=== PATIENT | male | born 1970 | race Hispanic/Latino ===

== ENCOUNTER 2021-02-28 10:45 | Outpatient (CLI) | payer OTHER, SELFPAY ==
[2021-02-28 11:12] LABS: Basophils Percent Auto 0.4 % (0.2-1.2); Eosinophils Absolute Auto 0.1 K/mm3 (0-0.3); Eosinophils Percent Auto 2.7 % (0-4.4); Hematocrit 41.9 % (42.0-52.0); Hemoglobin 13.8 g/dL (14.0-18.0); Immature Granulocyte Absolute 0.02 K/mm3 (0.00-0.031); Immature Granulocyte Percent A 0.4 % (0-0.5); Lymphocytes Absolute Auto 1.28 K/mm3 (0.9-3.2); Lymphocytes Percent Auto 26.6 % (18.3-44.2); Mean Corpuscular HGB Conc 32.9 g/dl (32-36); Mean Corpuscular Hemoglobin 29.6 pg (26-34); Mean Corpuscular Volume 89.7 fl (80-100); Mean Platelet Volume 9.3 fl (7.4-10.4); Monocytes Absolute Auto 0.5 K/mm3 (0.1-0.6); Monocytes Percent Auto 10.8 % (2.6-8.5); Neutrophils Absolute Auto 2.9 K/mm3 (1.3-6.7); Neutrophils Percent Auto 59.1 % (45.5-73.1); Platelet Count Result 242 k/mm3 (150-375); Red Blood Count 4.67 M/mm3 (4.6-6.20); Red Cell Distribution Width 11.6 % (11.5-14.5); White Blood Count 4.8 K/mm3 (4.5-10.0)
[2021-02-28 11:16] LABS: Add Urine Microscopic? YES; Appearance Urine Clear (Clear); Bilirubin Urine Negative (Negative); Blood Urine Negative (Negative); Color Urine Yellow (Yellow); Glucose Urine UA Negative (Negative); Ketones Urine Negative (Negative); Leukocyte Esterase Ur Negative LEU/UL (Negative); Mucus Urine Rare /lpf; Nitrate Urine Negative (Negative); Protein Urine 1+ mg/dL (Negative); RBC Urine 0-2 /hpf (0-2); Specific Grav Ur 1.019 (1.001-1.035); Urobilinogen Urine Negative mg/dL (<2.0); WBC Urine 0-3 /hpf
[2021-02-28 11:22] LABS: Alanine Aminotransferase 49 U/L (4-50); Albumin Level 4.6 g/dL (3.5-5.1); Alkaline Phosphatase 71 U/L (38-126); Anion Gap 10 mmol/L (8-16); Aspartate Amino Transferase 92 U/L (17-59); Bilirubin,Total 0.5 mg/dL (0.2-1.3); Blood Urea Nitrogen 9 mg/dL (9-20); Calcium 9.4 mg/dL (8.4-10.2); Carbon Dioxide 26 mmol/L (22-30); Chloride 104 mmol/L (98-107); Cholesterol 266 mg/dL (0-200); Estimated Glomerular Filt Rate > 60; Glucose 95 mg/dL (75-110); HDL Direct 64 mg/dL; Potassium 4.5 mmol/L (3.4-5.0); Sodium 140 mmol/L (137-145); Triglycerides 108 mg/dL (<150)
[2021-02-28 11:33] LABS: LDL Cholesterol Direct 154 mg/dL
[2021-02-28 11:54] LABS: Prostate Specific Antigen 1.5 ng/mL (< OR = 4.0); Thyroid Stimulating Hormone 0.861 uIU/mL (0.465-4.680)
[2021-02-28 11:59] LABS: Free T4 Free Thyroxine 0.93 ng/mL (0.78-2.19)
[2021-03-04 14:24] LABS: Testosterone Total 618 ng/dL (250-1100)
== END 2021-02-28 10:46 | disposition home or self-care (01) ==
PROVIDERS: PCP Nurse Practitioner Family; Visit Provider Nurse Practitioner Family
DX: F41.1 Generalized anxiety disorder (principal); F10.14 Alcohol abuse with alcohol-induced mood disorder; I10 Essential (primary) hypertension; Z12.5 Encounter for screening for malignant neoplasm of prostate
CPT/HCPCS: 36415; 80053; 80061; 81001; 84153; 84403; 84439; 84443; 85025

== ENCOUNTER 2021-02-28 14:34 | Outpatient (CLI) | payer OTHER, SELFPAY ==
--- NOTE | ~2021-02-28 | MR_ITS ---
EXAMINATION: MR brain/brain stem wo/w con DATE: 02/28/2021 15:33 INDICATION: Headache. TECHNIQUE: Magnetic resonance imaging (MRI) of the brain and brainstem was performed without and with 15 mL MultiHance intravenous contrast. Sequences included sagittal and axial T1-weighted FSE, axial diffusion-weighted FS EPI, axial T2*-weighted GRE, axial T2-weighted FLAIR Propeller, and axial T2-we ighted Propeller. Postcontrast sequences included axial and coronal T1-weighted FSE. Apparent diffusi on coefficient (ADC) maps were created. COMPARISON: None. FINDINGS: There is no intracranial hemorrhage, acute infarction, or abnormal intracranial mass lesion . The ventricles are normal in size. The paranasal sinuses are clear. The orbits are normal. The mast oid air cells are normal. IMPRESSION: 1. Normal brain. Reviewed, dictated and finalized at location A. IMPRESSION: 1. Normal brain.
[2021-02-28 15:15] LABS: Estimated Glomerular Filt Rate > 60
== END 2021-02-28 14:35 ==
PROVIDERS: PCP Nurse Practitioner Family; Visit Provider Nurse Practitioner Family
DX: R51.0 Headache with orthostatic component, not elsewhere classified (principal)
CPT/HCPCS: 70553; A9577

== ENCOUNTER 2021-10-27 07:20 | Outpatient (CLI) | payer BC, SELFPAY ==
[2021-10-27 07:57] LABS: Hematocrit 39.9 % (42.0-52.0); Hemoglobin 13.6 g/dL (14.0-18.0); Mean Corpuscular HGB Conc 34.1 g/dl (32-36); Mean Corpuscular Hemoglobin 31.2 pg (26-34); Mean Corpuscular Volume 91.5 fl (80-100); Mean Platelet Volume 8.9 fl (7.4-10.4); Platelet Count Result 272 k/mm3 (150-375); Red Blood Count 4.36 M/mm3 (4.6-6.20); Red Cell Distribution Width 12.4 % (11.5-14.5); White Blood Count 3.9 K/mm3 (4.5-10.0)
[2021-10-27 08:10] LABS: Alanine Aminotransferase 43 U/L (4-50); Albumin Level 4.7 g/dL (3.5-5.1); Alkaline Phosphatase 83 U/L (38-126); Anion Gap 11 mmol/L (8-16); Aspartate Amino Transferase 91 U/L (17-59); Bilirubin,Total 0.5 mg/dL (0.2-1.3); Blood Urea Nitrogen 6 mg/dL (9-20); Calcium 8.6 mg/dL (8.4-10.2); Carbon Dioxide 25 mmol/L (22-30); Chloride 101 mmol/L (98-107); Cholesterol 272 mg/dL (0-200); Estimated Glomerular Filt Rate > 60; Glucose 123 mg/dL (65-110); HDL Direct 81 mg/dL; Potassium 3.6 mmol/L (3.4-5.0); Sodium 137 mmol/L (137-145); Triglycerides 191 mg/dL (<150)
[2021-10-27 08:22] LABS: LDL Cholesterol Direct 146 mg/dL
== END 2021-10-27 07:21 | disposition home or self-care (01) ==
PROVIDERS: PCP Nurse Practitioner Family; Visit Provider Nurse Practitioner Family
DX: R25.0 Abnormal head movements (principal); I10 Essential (primary) hypertension; F10.10 Alcohol abuse, uncomplicated
CPT/HCPCS: 36415; 80053; 80061; 85027

== ENCOUNTER 2022-02-20 07:55 | Outpatient (CLI) | payer BC, SELFPAY ==
--- NOTE | ~2022-02-20 | MR_ITS ---
EXAMINATION: MR lumbar spine wo con DATE: 02/20/2022 08:20 INDICATION: Low back pain. Right leg pain. TECHNIQUE: Magnetic resonance imaging (MRI) of the lumbar spine was performed without intravenous con trast. Sequences included sagittal T2-weighted FSE, sagittal T2-weighted FS FSE, sagittal T1-weighted FSE, and axial T2-weighted FSE. COMPARISON: None FINDINGS: There is 4 degrees levocurvature of lumbar spine. There is 3 mm anterolisthesis of L4 on L5 . There is moderately decreased disc height at L4-L5. L5 is a transitional segment. The distal spinal cord signal intensity is normal. The conus medullaris is at T12-L1. The following disc levels are sp ecifically discussed: L1-L2: The disc does not extend beyond the endplate margin. There is mild bilateral facet joint osteo arthritis. There is no neural foraminal stenosis. There is no central canal stenosis. L2-L3: The disc does not extend beyond the endplate margin. There is no facet joint osteoarthritis. T here is no neural foraminal stenosis. There is no central canal stenosis. L3-L4: The disc does not extend beyond the endplate margin. There is mild left facet joint osteoarthr itis. There is no neural foraminal stenosis. There is no central canal stenosis. L4-L5: The disc is bulging and has an annular fissure. There is severe bilateral facet joint osteoart hritis. There is mild bilateral neural foraminal stenosis. There is mild central canal stenosis. L5-S1: The disc does not extend beyond the endplate margin. There is no facet joint hypertrophy. Ther e is no neural foraminal stenosis. There is no central canal stenosis. IMPRESSION: 1. Moderate spondylosis at L4-L5. Reviewed, dictated and finalized at location A.
== END 2022-02-20 07:56 ==
LOC: MICIMG 07:56
PROVIDERS: PCP Internal Medicine; Visit Provider Nurse Practitioner Family
DX: M47.26 Other spondylosis with radiculopathy, lumbar region (principal)
CPT/HCPCS: 72148

== ENCOUNTER 2023-10-05 21:34 | Inpatient (IN) | payer SELFPAY ==
--- NOTE | ~2023-10-05 | CT_ITS ---
CT of the Abdomen and Pelvis: Indication: Abdominal pain Technique: 2.5 mm axial scans were obtained through the abdomen and pelvis following intravenous adm inistration of 100 cc of Omnipaque 350. Dose reduction technique was used on this scan by utilizing a utomated exposure control and iterative reconstruction technique. The dose-length product (DLP) was 5 95.93 mGy-cm. Findings: Scans through the lung bases are unremarkable. There is diffuse fatty infiltration of the liver. The gallbladder is markedly distended with probable layering sludge. No gallbladder wall thickening or pericholecystic inflammatory change. The spleen, pancreas, adrenals and kidneys are within normal limits. No evidence of aortic aneurysm. No lymphad enopathy. No bowel obstruction or bowel wall thickening. There is no evidence to suggest acute appendicitis. Images through the pelvis were performed. Urinary bladder unremarkable. No pelvic mass seen. No ascit es. Impression: Diffuse fatty infiltration of liver. Markedly distended gallbladder with gallbladder sludge, but no other secondary signs for acute cholec ystitis. Reviewed, dictated and finalized at [facility]. LIANCE REPRESENTATIVE DEALER Impression: Diffuse fatty infiltration of liver. Markedly distended gallbladder with gallbladder sludge, but no other secondary signs for acute cholecystitis.
--- NOTE | ~2023-10-05 | US_ITS ---
Limited Abdominal Sonogram: Real-time sonographic imaging of the right upper quadrant was performed. Clinical History: Abnormal liver enzymes Findings: The liver appears echogenic, with no evidence of mass lesion or bile duct dilatation. Main portal vein demonstrates normal direction of flow. The gallbladder is prominently distended, and con tains gallbladder sludge. No gallbladder wall thickening. The common bile duct measures 5 mm. The vi sualized pancreas, aorta, and IVC are unremarkable. Impression: Gallbladder sludge with prominently distended gallbladder. Diffuse fatty infiltration of liver. Reviewed, dictated and finalized at location M. SPACE QUALITY ENGINEER Impression: Gallbladder sludge with prominently distended gallbladder. Diffuse fatty infiltration of liver.
--- NOTE | ~2023-10-05 | XR_ITS ---
Portable chest x-ray Comparison: 07/25/2019 Clinical History: Lethargy Findings: Lungs are clear, without focal consolidation or pleural effusion. Cardiomediastinal silho uette is stable. Bones and soft tissues are unremarkable. Impression: Clear lungs. Reviewed, dictated and finalized at location . ITURE DESIGNER Impression: Clear lungs.
--- NOTE | ~2023-10-05 | CT_ITS ---
Non-contrast Head CT History: Syncope Technique: Axial non-contrast imaging of the brain was performed. Dose reduction technique was used on this scan by utilizing automated exposure control and iterative reconstruction technique. The dose -length product (DLP) was 605.33 mGy-cm. Findings: There is no evidence of intracranial hemorrhage, mass lesion, or acute infarct. Brain par enchyma appears normal. The ventricles and subarachnoid spaces are normal in size. The calvarium ap pears normal. The visualized paranasal sinuses and mastoid air cells are clear. Impression: No significant abnormality seen. Reviewed, dictated and finalized at location . LE MANAGER Impression: No significant abnormality seen.
[2023-10-05 21:48] VITALS: BP 125/85; PULSE 105; RESP 16; TEMP 36.6; O2SAT 100
[2023-10-06] VITALS (18 sets, daily range): BP systolic 112–146; BP diastolic 86–98; PULSE 103–124; RESP 14–26; TEMP 36.6–37.2; O2SAT 96–100; BMI 23.1
--- NOTE | 2023-10-06 01:05 | ECG_ITS ---
Measurements Intervals Round O Rate: 103 P: 210 DE: 265 QRS: 49 QRSD: 80 T: 42 QT: 370 QTc: 486 Interpretive Statements SINUS TACHYCARDIA WITH FIRST DEGREE AV BLOCK NONSPECIFIC ST AND T-WAVE ABNORMALITY COMPARED TO ECG 07/26/2019 00:33:34 FIRST DEGREE AV BLOCK NOW PRESENT T-WAVE ABNORMALITY NOW PRESENT Electronically Signed On 10-06-2023 15:14:57 [address] SPECIALIST by Junior Luevano M.D.
[2023-10-06] MEDS: SODIUM CHLORIDE 0.9% IV 1,000 ML 999 ML IV CONT ×3 (01:21→03:01)
[2023-10-06] MEDS: ONDANSETRON INJ 4 MG/2 ML VIAL IV PUSH ×3 (01:22→11:42)
[2023-10-06] MEDS: THIAMINE 500 MG/NS 100 ML 500 MG/100 ML BAG 200 MG IVPB (01:35)
[2023-10-06 01:50] LABS: Prothrombin Time 13.2 Seconds (11.1-14.7)
[2023-10-06 01:51] LABS: Partial Thromboplastin Time 29.8 SECONDS (22.3-36.8)
[2023-10-06 02:01] LABS: Amphetamine Screen Urine Negative (Negative); Barbiturate Screen Urine Negative (Negative); Benzodiazepines Screen Urine Negative (Negative); Cannabinoid Screen Urine Negative (Negative); Cocaine Screen Urine Negative (Negative); Methadone Screen Urine Negative (Negative); Opiate Screen Urine Negative (Negative); Phencyclidine Screen Urine Negative (Negative)
[2023-10-06 02:02] LABS: Appearance Urine Clear (Clear); Bacteria Urine None Seen /hpf; Bilirubin Urine 2+ (Negative); Blood Urine Negative (Negative); Color Urine Dark Yellow (Yellow); Glucose Urine UA Negative (Negative); Hyaline Casts Urine Present /lpf; Ketones Urine 2+ mg/dL (Negative); Leukocyte Esterase Ur Trace LEU/UL (Negative); Need Manual Microscopic Reviewed; Nitrate Urine Negative (Negative); Protein Urine 1+ mg/dL (Negative); RBC Urine 0-2 /hpf (0-2); Specific Grav Ur 1.017 (1.001-1.035); Squamous Epithelial Cell Urine Occasional /hpf (Few); Urobilinogen Urine >=8.0 mg/dL (<2.0); WBC Urine 0-5 /hpf; pH Urine 6.5 (5.0-9.0)
[2023-10-06 02:03] LABS: Add Urine Microscopic? YES
[2023-10-06 02:07] LABS: Troponin I < 0.012 ng/mL (0.000-0.034)
[2023-10-06 02:10] LABS: Lactic Acid Reflex 4.4 mmol/L (0.7-2.0)
[2023-10-06 02:10] LABS: Alanine Aminotransferase 97 U/L (6-50); Albumin Level 4.2 g/dL (3.5-5.1); Alkaline Phosphatase 363 U/L (38-126); Anion Gap 21 mmol/L (8-16); Aspartate Amino Transferase 367 U/L (17-59); Bilirubin,Total 3.9 mg/dL (0.2-1.3); Blood Urea Nitrogen 7 mg/dL (9-20); Calcium 8.4 mg/dL (8.4-10.2); Carbon Dioxide 21 mmol/L (22-30); Chloride 87 mmol/L (98-107); Estimated CRCL calculation 109 ml/min; Estimated Glomerular Filt Rate > 60; Ethanol 305 mg/dL (<10); Glucose 122 mg/dL (65-110); Lipase 1787 U/L (23-300); Magnesium 2.1 mg/dL (1.6-2.3); Potassium 2.7 mmol/L (3.4-5.0); Sodium 129 mmol/L (137-145)
[2023-10-06 02:57] LABS: Beta-Hydroxybutyrate/Acetoacetate 2.25 mmol/L (0.02-0.27)
[2023-10-06] MEDS: KCL 20 MEQ/SW 100 ML 100 ML 50 MEQ IVPB (03:01)
[2023-10-06 03:05] LABS: Basophils Percent Auto 0.7 % (0.2-1.2); Eosinophils Absolute Auto 0.1 K/mm3 (0-0.3); Eosinophils Percent Auto 1.1 % (0-4.4); Hematocrit 28.2 % (42.0-52.0); Hemoglobin 9.5 g/dL (14.0-18.0); Immature Granulocyte Absolute 0.05 K/mm3 (0.00-0.031); Immature Granulocyte Percent A 1.1 % (0-0.5); Immature Platelet Fraction Pct 7.6 % (0.9-11.2); Lymphocytes Absolute Auto 0.43 K/mm3 (0.9-3.2); Lymphocytes Percent Auto 9.5 % (18.3-44.2); Mean Corpuscular HGB Conc 33.7 g/dl (32-36); Mean Corpuscular Hemoglobin 31.1 pg (26-34); Mean Corpuscular Volume 92.5 fl (80-100); Mean Platelet Volume 10.1 fl (7.4-10.4); Monocytes Absolute Auto 0.5 K/mm3 (0.1-0.6); Monocytes Percent Auto 11.7 % (2.6-8.5); Neutrophils Absolute Auto 3.4 K/mm3 (1.3-6.7); Neutrophils Percent Auto 75.9 % (45.5-73.1); Nucleated Red Blood Cells Perc 0.4 % (0.0-0.2); Platelet Count Result 76 k/mm3 (150-375); Red Blood Count 3.05 M/mm3 (4.6-6.20); Red Cell Distribution Width 13.2 % (11.5-14.5); White Blood Count 4.5 K/mm3 (4.5-10.0)
[2023-10-06 04:37] LABS: Reflex Lactic Acid Yes or No Add Lactic
--- NOTE | 2023-10-06 04:37 | ED.GENADULT ---
HPI - General Adult General Chief complaint: Alcohol Stated complaint: vomiting blood, headache, alcoholic? Time Seen by Provider: 10/06/23 00:53 History of Present Illness HPI narrative: patient 53-year-old gentleman who presents emergency department with chief complaint of not feeling well. The patient reports that he has history of alcohol abuse and reports that he drinks about a 5th and a few beers a day the patient states that he had an episode of passing out in the kitchen yesterday and struck his head patient also reports he has been vomiting and has had episodes with blood in his vomitus. The patient reports that he has had abdominal discomfort with this as well and has not been feeling well. Related Data Allergies Allergy/AdvReac Type Severity Reaction Status Date / Time No Known Allergies Allergy Verified 10/06/23 00:48 Review of Systems Review of Systems: A 10 system review of systems was completed on the patient and is negative except for what is stated in the HPI. Nursing and ancillary documentation was reviewed. FORMERLY [facility] Past Medical History Medical History Alcohol abuse Healthy adult male Obesity LARISSA (obstructive sleep apnea) Surgical History Surgical History No history of previous surgery Previous back surgery Family History Family History Mother Diabetes mellitus Mother Diabetes mellitus Father Hypertension Sibling Stomach cancer Social History Social History Social History: Reyna name is Maki. 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 Substance use: never Substance use type: does not use Living arrangements: with family Occupation/Education: occupation Gender identity (if verbalized by the patient): Male Spiritual care concerns: No Exam Narrative: GENERAL: He will-appearing, well-nourished, and in mild acute distress. HEAD: Normocephalic, atraumatic. EYES: PERRLA and EOMI. ENT: Nares clear, no rhinorrhea or epistaxis. Mucous membranes moist. NECK: Supple. CHEST: Clear to auscultation. No respiratory distress. HEART: Regular rate and rhythm. No murmur heard. Normal peripheral pulses. ABDOMEN: Soft, diffuse mild tenderness, nondistended, normal active bowel sounds. EXTREMITIES: Normal range of motion. No edema. SKIN: Warm, dry, no rash. NEURO: No focal deficits. Alert and oriented x3. PSYCH: Normal mood and affect. Course Vital Signs Vital signs: Vital Signs Temperature 36.6 C 10/05/23 21:48 Pulse Rate 105 H 10/05/23 21:48 Respiratory Rate 16 10/05/23 21:48 Blood Pressure 125/85 10/05/23 21:48 Pulse Oximetry 100 10/05/23 21:48 Oxygen Delivery Room Air 10/05/23 21:48 Temperature 36.6 C 10/05/23 21:48 Pulse Rate 104 H 10/06/23 01:51 Respiratory Rate 19 10/06/23 01:51 Blood Pressure 134/95 H 10/06/23 01:51 Pulse Oximetry 98 10/06/23 01:51 Oxygen Delivery Room Air 10/06/23 00:43 Medical Decision Making [facility] Narrative Medical decision making narrative: differential diagnosis includes alcohol withdrawal, alcoholic ketoacidosis, starvation ketosis, dehydration, pancreatitis, dehydration the patient was found to still be acutely intoxicated with a blood alcohol level of 305 patient's lactic acid was elevated at 4.4 electrolytes showed a sodium 129 potassium of 2.7 carbon dioxide was 21 anion gap was 21 BUN and creatinine were normal magnesium was 2.1
[2023-10-06] MEDS: LORazepam INJ (*CRX) 2 MG/ML VIAL IV PUSH ×2 (05:07→19:36)
[2023-10-06] MEDS: DEXTROSE 5%/0.9% SOD CHL 1,000 ML 150 ML IV CONT ×3 (05:15→18:49)
[2023-10-06 05:35] LABS: Lactic Acid 2.7 mmol/L (0.7-2.0)
[2023-10-06 06:27] LABS: Glucose Point of Care 118 mg/dl (65-105)
--- NOTE | 2023-10-06 06:28 | PC.NURSE ---
BG - 118mg/dL at this time. Pt wanting to order bfast. This RN told pt he would be able to order around 0730. Pt provided apple juice, lexii cracker and PB.
[2023-10-06 06:29] LABS: Hematocrit 27.8 % (42.0-52.0); Hemoglobin 9.4 g/dL (14.0-18.0)
[2023-10-06] MEDS: THIAMINE HCL 200 MG/2 ML VIAL 100 MG IV PUSH (09:03)
[2023-10-06] MEDS: PANTOPRAZOLE SODIUM IV 40 MG VIAL IV PUSH ×3 (09:04→21:58)
[2023-10-06 09:34] LABS: Glucose Point of Care 126 mg/dl (65-105)
--- NOTE | 2023-10-06 10:08 | ADMGEN ---
This patient, Angel Lopez, was admitted to Intensive Care Unit-6. Patient/family oriented to hospital policies and general routines including ID bracelet, bed and alarms, visiting hours, pain management, procedures, bathroom and other care routines, personal items, smoking policy, room service/diet, and visiting hours. Information on how to activate the Rapid Response Team has been discussed. Patient/Family are encouraged to report perceived risks to care and to ask questions if they do not understand what they are told or what they should do.
[2023-10-06 12:01] LABS: Hematocrit 25.9 % (42.0-52.0); Hemoglobin 8.7 g/dL (14.0-18.0)
[2023-10-06 16:35] LABS: Glucose Point of Care 155 mg/dl (65-105)
[2023-10-06 17:48] LABS: Hemoglobin 8.5 g/dL (14.0-18.0)
--- NOTE | 2023-10-06 19:11 | PM.IMHP ---
H&P: HPI History of Present Illness Date/Time: 10/06/23 19:11 Chief Complaint: 1. Alcohol intoxication 2. Nausea and vomiting Narrative: Angel Lopez is a 53-year-old gentleman who presents emergency department with chief complaint of not feeling well.? The patient reports that he has history of alcohol abuse and reports that he drinks about a 5th and a few beers a day the patient states that he had an episode of passing out in the kitchen yesterday and struck his head patient also reports he has been vomiting and has had episodes with blood in his vomitus.? The patient reports that he has had abdominal discomfort with this as well and has not been feeling well. He vapes nicotine, drinks beers and vodka daily, denies illicit drug use; CTAP: Diffuse fatty infiltration of liver. Markedly distended gallbladder with gallbladder sludge, but no other secondary signs for acute cholecystitis. CT head: Unremarkable CXR: Unremarkable He will be admitted, evaluated and managed for alcohol intoxication, alcohol gastritis Review of Systems Review of Systems: All systems reviewed & are unremarkable except as noted in HPI and below Constitutional: Constitutional: Reports fatigue Eyes: Eyes: Reports as per HPI ENT: Reports system reviewed and no additional complaints, except as documented Cardiovascular: Cardiovascular: Reports no additional cardiovascular complaints Respiratory: Respiratory: Reports no additional respiratory complaints Gastrointestinal: Gastrointestinal: Reports no additional gastrointestinal complaints, Reports nausea and Reports vomiting Genitourinary: Genitourinary: Reports no additional male genitourinary complaints Musculoskeletal: Musculoskeletal: Reports no additional musculoskeletal complaints Integumentary/Breasts: Skin/Breast: Reports system reviewed and no additional complaints, except as docu Neurologic: Reports system reviewed and no additional complaints, except as documented Psychiatric: Psychiatric: Reports no additional psychiatric complaints [facility] Past Medical History Medical History Alcohol abuse Healthy adult male Obesity LARISSA (obstructive sleep apnea) Surgical History Surgical History No history of previous surgery Previous back surgery Family History Family History Mother Diabetes mellitus Mother Diabetes mellitus Father Hypertension Sibling Stomach cancer Social History Social History Social History: Reyna name is Maki. 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 Substance use: never Substance use type: does not use Do You Feel Safe in your Home?: Yes Lack of Transportation: No Lack of Food: Never True Current Housing: I Have Housing Concerned About Future Housing: No Difficulty Paying Gas/Electric Bills: No Difficulty Paying for Meds: No Currently Unemployed: No Education: Don't Know Difficulty w/ Childcare or Family Care: No Living arrangements: with family Occupation/Education: occupation Gender identity (if verbalized by the patient): Male Spiritual care concerns: No Meds Home Medications and Allergies Home Medications Medication Instructions Recorded Confirmed Type amlodipine 5 mg-benazepril 10 mg 1 cap PO DAILY #90 caps 01/05/20 10/06/23 Rx capsule (Lotrel) Allergies Allergy/AdvReac Type Severity Reaction Status Date / Time No Known Allergies Allergy Verified 0
[2023-10-06 23:19] LABS: Hematocrit 24.3 % (42.0-52.0)
[2023-10-07] VITALS (11 sets, daily range): BP systolic 101–131; BP diastolic 61–97; PULSE 98–121; RESP 18–22; TEMP 36.7–37.4; O2SAT 94–100
[2023-10-07] MEDS: DEXTROSE 5%/0.9% SOD CHL 1,000 ML 150 ML IV CONT ×3 (01:43→17:23)
[2023-10-07] MEDS: LORazepam INJ (*CRX) 2 MG/ML VIAL IV PUSH ×5 (01:43→20:42)
[2023-10-07 04:41] LABS: Basophils Percent Auto 0.6 % (0.2-1.2); Eosinophils Percent Auto 0.4 % (0-4.4); Hematocrit 26.7 % (42.0-52.0); Hemoglobin 8.8 g/dL (14.0-18.0); Immature Granulocyte Absolute 0.06 K/mm3 (0.00-0.031); Immature Granulocyte Percent A 1.3 % (0-0.5); Immature Platelet Fraction Pct 10.4 % (0.9-11.2); Lymphocytes Absolute Auto 0.69 K/mm3 (0.9-3.2); Lymphocytes Percent Auto 14.8 % (18.3-44.2); Mean Corpuscular Hemoglobin 31.8 pg (26-34); Mean Corpuscular Volume 96.4 fl (80-100); Mean Platelet Volume 10.5 fl (7.4-10.4); Monocytes Absolute Auto 0.4 K/mm3 (0.1-0.6); Monocytes Percent Auto 8.4 % (2.6-8.5); Neutrophils Absolute Auto 3.5 K/mm3 (1.3-6.7); Neutrophils Percent Auto 74.5 % (45.5-73.1); Nucleated Red Blood Cells Absolute Auto 0.1 K/mm3 (0.0-0.012); Nucleated Red Blood Cells Perc 1.3 % (0.0-0.2); Platelet Count Result 77 k/mm3 (150-375); Red Blood Count 2.77 M/mm3 (4.6-6.20); Red Cell Distribution Width 13.4 % (11.5-14.5); White Blood Count 4.7 K/mm3 (4.5-10.0)
[2023-10-07 04:55] LABS: Alanine Aminotransferase 89 U/L (6-50); Albumin Level 3.2 g/dL (3.5-5.1); Alkaline Phosphatase 284 U/L (38-126); Anion Gap 12 mmol/L (8-16); Aspartate Amino Transferase 338 U/L (17-59); Bilirubin,Total 5.3 mg/dL (0.2-1.3); Calcium 7.4 mg/dL (8.4-10.2); Carbon Dioxide 24 mmol/L (22-30); Chloride 98 mmol/L (98-107); Estimated CRCL calculation 133 ml/min; Estimated Glomerular Filt Rate > 60; Glucose 131 mg/dL (65-110); Potassium 2.5 mmol/L (3.4-5.0); Sodium 134 mmol/L (137-145)
[2023-10-07 05:13] LABS: Blood Urea Nitrogen < 2 mg/dL (9-20)
[2023-10-07 05:24] LABS: Hypochromasia 1+ (NORMAL); Platelet Estimate Decreased (Adequate); Stomatocytes 1+ (NORMAL)
[2023-10-07 05:25] LABS: Schistocytes None Seen (NORMAL)
[2023-10-07] MEDS: POTASSIUM CHLORIDE INJ 40 MEQ in SODIUM CHLORIDE 0.9% IV 500 ML 130 MEQ IVPB (06:50)
[2023-10-07] MEDS: THIAMINE HCL 200 MG/2 ML VIAL 100 MG IV PUSH (07:59)
[2023-10-07] MEDS: ENOXAPARIN 40 MG/0.4 ML SYRINGE SUB-Q (07:59)
[2023-10-07] MEDS: PANTOPRAZOLE SODIUM IV 40 MG VIAL IV PUSH ×2 (08:00→20:42)
[2023-10-07] MEDS: chlordiazePOXIDE (*CRX) 25 MG CAPSULE PO ×3 (10:27→21:57)
[2023-10-07 11:29] LABS: Glucose Point of Care 182 mg/dl (65-105)
[2023-10-07 17:56] LABS: Glucose Point of Care 253 mg/dl (65-105)
--- NOTE | 2023-10-07 18:58 | PM.IMPN ---
Progress Note: A&P Assessment and Plan (1) Alcohol intoxication: Code(s): F10.929 - Alcohol use, unspecified with intoxication, unspecified Status: Acute Assessment and Plan: CIWA triggered Benzodiazepine therapy. 10/07/23: Will add Librium, Haldol (2) Nausea and vomiting: Code(s): R11.2 - Nausea with vomiting, unspecified Status: Acute Assessment and Plan: due to alcohol; anti-emetics 10/07/23: Improved; IVFs (3) Transaminitis: Code(s): R74.0 - Nonspecific elevation of levels of transaminase and lactic acid dehydrogenase [LDH] Status: Acute (4) Alcoholic gastritis: Code(s): K29.20 - Alcoholic gastritis without bleeding Status: Acute Assessment and Plan: Advance diet as tolerated (5) Vapes nicotine containing substance: Code(s): Z72.0 - Tobacco use Status: Acute Assessment and Plan: cessation counseling, 3 minutes (6) Fatty liver: Code(s): K76.0 - Fatty (change of) liver, not elsewhere classified Status: Acute Assessment and Plan: Cessation counseling,alcohol (7) Diarrhea: Code(s): R19.7 - Diarrhea, unspecified Status: Acute Assessment and Plan: Likely 2/2 withdrawal; Monitor Time Spent With Patient Time with patient: 25 - 35 minutes Subjective Date/time seen: 10/07/23 18:58 Interval history: Seen and examined; actively withdrawing. Tremulous and somnolent. Review of Systems Review of Systems: All systems reviewed & are unremarkable except as noted in HPI and below Constitutional: Constitutional: Reports fatigue Eyes: Eyes: Reports as per HPI ENT: Reports system reviewed and no additional complaints, except as documented Cardiovascular: Cardiovascular: Reports no additional cardiovascular complaints Respiratory: Respiratory: Reports no additional respiratory complaints Gastrointestinal: Gastrointestinal: Reports no additional gastrointestinal complaints, Reports nausea and Reports vomiting Genitourinary: Genitourinary: Reports no additional male genitourinary complaints Musculoskeletal: Musculoskeletal: Reports no additional musculoskeletal complaints Integumentary/Breasts: Skin/Breast: Reports system reviewed and no additional complaints, except as docu Neurologic: Reports system reviewed and no additional complaints, except as documented Psychiatric: Psychiatric: Reports no additional psychiatric complaints Endocrine: Endocrine: Reports fatigue Exam Const: General: no acute distress HENMT: Ears: TM's normal bilaterally Eyes: General: appearance normal, both eyes and all related structures Pupils: Equal, round and reactive pupils present Neck: Neck: supple Resp: Effort & Inspection: normal respiratory effort Cardio: Rate: regular rate : General: Yes bladder normal to palpation Skin: General skin exam: normal color Neuro: General: gait normal Cranial nerves: Yes Equal, round and reactive pupils present Motor exam (neuro): 5/5 motor strength present throughout Psych: Mental Status: mental status grossly normal Objective Data Vital Signs Vital Signs: Vital Signs - 24 hr 10/06/23 20:00 10/06/23 20:00 10/06/23 20:00 Temperature Pulse Rate 106 H 106 H Pulse Rate [Bilateral Pedal (Dorsalis Pedis) Palpation] Respiratory Rate 14 Blood Pressure 146/96 H Pulse Oximetry 97 Oxygen Delivery Room Air 10/06/23 20:00 10/06/23 22:00 10/06/23 23:51 Temperature 97.9 F Pulse Rate 111 H 103 H 113 H Pulse Rate [Bilateral Pedal (Dorsalis Pedis) Palpation] Respiratory Rate 26 H Blood Pressure 125/86 Pulse Oximetry 97 Oxygen Delivery 10/06/23 23:52 10/07/23 00:00 10/07/23 02:00 Temperature Pulse Rate 113 H 117 H 107 H Pulse Rate [Bilateral Pedal (Dorsalis Pedis) Palpation] Respiratory Rate 24 H 18 Blood Pressure 121/61 Pulse Oximetry 98 100 Oxygen Delivery Room Air 10/07/23 04:00 10/07/23 0
[2023-10-08] VITALS (13 sets, daily range): BP systolic 97–127; BP diastolic 68–102; PULSE 100–121; RESP 18–25; TEMP 36.8–37.1; O2SAT 97–100
[2023-10-08] MEDS: LORazepam INJ (*CRX) 2 MG/ML VIAL IV PUSH ×4 (00:03→13:19)
[2023-10-08] MEDS: DEXTROSE 5%/0.9% SOD CHL 1,000 ML 150 ML IV CONT (00:15)
[2023-10-08 00:46] LABS: Glucose Point of Care 138 mg/dl (65-105)
[2023-10-08 04:59] LABS: Basophils Percent Auto 0.7 % (0.2-1.2); Eosinophils Absolute Auto 0.1 K/mm3 (0-0.3); Eosinophils Percent Auto 1.4 % (0-4.4); Hematocrit 25.4 % (42.0-52.0); Hemoglobin 8.2 g/dL (14.0-18.0); Immature Granulocyte Absolute 0.07 K/mm3 (0.00-0.031); Immature Granulocyte Percent A 1.2 % (0-0.5); Immature Platelet Fraction Pct 10.8 % (0.9-11.2); Lymphocytes Absolute Auto 0.89 K/mm3 (0.9-3.2); Lymphocytes Percent Auto 15.4 % (18.3-44.2); Mean Corpuscular HGB Conc 32.3 g/dl (32-36); Mean Corpuscular Hemoglobin 31.1 pg (26-34); Mean Corpuscular Volume 96.2 fl (80-100); Mean Platelet Volume 10.9 fl (7.4-10.4); Monocytes Absolute Auto 0.5 K/mm3 (0.1-0.6); Monocytes Percent Auto 8.5 % (2.6-8.5); Neutrophils Absolute Auto 4.2 K/mm3 (1.3-6.7); Neutrophils Percent Auto 72.8 % (45.5-73.1); Nucleated Red Blood Cells Absolute Auto 0.1 K/mm3 (0.0-0.012); Nucleated Red Blood Cells Perc 0.9 % (0.0-0.2); Platelet Count Result 99 k/mm3 (150-375); Red Blood Count 2.64 M/mm3 (4.6-6.20); Red Cell Distribution Width 13.6 % (11.5-14.5); White Blood Count 5.8 K/mm3 (4.5-10.0)
[2023-10-08 05:18] LABS: Alanine Aminotransferase 59 U/L (6-50); Albumin Level 2.7 g/dL (3.5-5.1); Alkaline Phosphatase 225 U/L (38-126); Anion Gap 6 mmol/L (8-16); Aspartate Amino Transferase 242 U/L (17-59); Bilirubin,Total 5.3 mg/dL (0.2-1.3); Calcium 7.1 mg/dL (8.4-10.2); Carbon Dioxide 30 mmol/L (22-30); Chloride 99 mmol/L (98-107); Estimated CRCL calculation 133 ml/min; Estimated Glomerular Filt Rate > 60; Glucose 116 mg/dL (65-110); Potassium 2.6 mmol/L (3.4-5.0); Sodium 135 mmol/L (137-145)
[2023-10-08 05:25] LABS: Hypochromasia 1+ (NORMAL); Platelet Estimate Decreased (Adequate)
[2023-10-08 05:27] LABS: Large Platelets Present; Stomatocytes 1+ (NORMAL); Target Cells 1+ (NORMAL)
[2023-10-08 05:28] LABS: Schistocytes None Seen (NORMAL)
[2023-10-08 05:32] LABS: Blood Urea Nitrogen < 2 mg/dL (9-20)
[2023-10-08] MEDS: chlordiazePOXIDE (*CRX) 25 MG CAPSULE PO ×3 (06:28→23:02)
[2023-10-08] MEDS: THIAMINE HCL 200 MG/2 ML VIAL 100 MG IV PUSH (07:40)
[2023-10-08] MEDS: PANTOPRAZOLE SODIUM IV 40 MG VIAL IV PUSH ×2 (07:40→20:25)
[2023-10-08] MEDS: POTASSIUM CHLORIDE INJ 40 MEQ in SODIUM CHLORIDE 0.9% IV 500 ML 130 MEQ IVPB (07:40)
[2023-10-08 08:06] LABS: Glucose Point of Care 125 mg/dl (65-105)
[2023-10-08 11:55] LABS: Glucose Point of Care 118 mg/dl (65-105)
[2023-10-08] MEDS: SODIUM CHLORIDE 0.9% IV 1,000 ML 75 ML IV CONT (12:03)
--- NOTE | 2023-10-08 17:14 | PM.IMPN ---
Progress Note: A&P Assessment and Plan (1) Alcohol intoxication: Code(s): F10.929 - Alcohol use, unspecified with intoxication, unspecified Status: Acute Assessment and Plan: CIWA triggered Benzodiazepine therapy. 10/07/23: Will add Librium, Haldol 10/08/23: Improved (2) Nausea and vomiting: Code(s): R11.2 - Nausea with vomiting, unspecified Status: Acute Assessment and Plan: due to alcohol; anti-emetics 10/07/23: Improved; IVFs Stable (3) Transaminitis: Code(s): R74.0 - Nonspecific elevation of levels of transaminase and lactic acid dehydrogenase [LDH] Status: Acute (4) Alcoholic gastritis: Code(s): K29.20 - Alcoholic gastritis without bleeding Status: Acute Assessment and Plan: Advance diet as tolerated (5) Vapes nicotine containing substance: Code(s): Z72.0 - Tobacco use Status: Acute Assessment and Plan: cessation counseling, 3 minutes (6) Fatty liver: Code(s): K76.0 - Fatty (change of) liver, not elsewhere classified Status: Acute Assessment and Plan: Cessation counseling,alcohol (7) Diarrhea: Code(s): R19.7 - Diarrhea, unspecified Status: Acute Assessment and Plan: Likely 2/2 withdrawal; Monitor Time Spent With Patient Time with patient: 25 - 35 minutes Subjective Date/time seen: 10/08/23 17:14 Interval history: Seen and examined; actively withdrawing. Tremulous and somnolent. When do I get to leave Not in painful or respiratory distress Review of Systems Review of Systems: All systems reviewed & are unremarkable except as noted in HPI and below Constitutional: Constitutional: Reports fatigue Eyes: Eyes: Reports as per HPI ENT: Reports system reviewed and no additional complaints, except as documented Cardiovascular: Cardiovascular: Reports no additional cardiovascular complaints Respiratory: Respiratory: Reports no additional respiratory complaints Gastrointestinal: Gastrointestinal: Reports no additional gastrointestinal complaints, Reports nausea and Reports vomiting Genitourinary: Genitourinary: Reports no additional male genitourinary complaints Musculoskeletal: Musculoskeletal: Reports no additional musculoskeletal complaints Integumentary/Breasts: Skin/Breast: Reports system reviewed and no additional complaints, except as docu Neurologic: Reports system reviewed and no additional complaints, except as documented Psychiatric: Psychiatric: Reports no additional psychiatric complaints Endocrine: Endocrine: Reports fatigue Exam Const: General: no acute distress HENMT: Ears: TM's normal bilaterally Eyes: General: appearance normal, both eyes and all related structures Pupils: Equal, round and reactive pupils present Neck: Neck: supple Resp: Effort & Inspection: normal respiratory effort Cardio: Rate: regular rate : General: Yes bladder normal to palpation Skin: General skin exam: normal color Neuro: General: gait normal Cranial nerves: Yes Equal, round and reactive pupils present Motor exam (neuro): 5/5 motor strength present throughout Psych: Mental Status: mental status grossly normal Objective Data Vital Signs Vital Signs: Vital Signs - 24 hr 10/07/23 18:28 10/07/23 20:00 10/07/23 20:00 Temperature 98.8 F Pulse Rate 106 H Pulse Rate [Bilateral Pedal (Dorsalis Pedis) Palpation] 121 H 107 H Respiratory Rate 19 Blood Pressure 131/88 Pulse Oximetry 100 Oxygen Delivery 10/07/23 20:00 10/08/23 00:00 10/08/23 00:00 Temperature 98.5 F Pulse Rate 102 H 104 H Pulse Rate [Bilateral Pedal (Dorsalis Pedis) Palpation] 102 H Respiratory Rate 18 Blood Pressure 121/102 H Pulse Oximetry 99 Oxygen Delivery 10/08/23 00:00 10/08/23 04:00 10/08/23 04:00 Temperature Pulse Rate 107 H Pulse Rate [Bilateral Pedal (Dorsalis Pedis) Palpation] 110 H Respiratory Rate Blood Pressure 118/8
--- NOTE | 2023-10-08 22:22 | PC.NURSE ---
This patient, Angel Lopez, was received from [ICU ] on 10/08/23 at 2145. Patient/family oriented to unit policies and routines
[2023-10-09] VITALS (16 sets, daily range): BP systolic 101–115; BP diastolic 62–74; PULSE 100–132; RESP 16–24; TEMP 36–37.6; O2SAT 97–100
[2023-10-09] MEDS: chlordiazePOXIDE (*CRX) 25 MG CAPSULE PO ×3 (05:10→21:01)
[2023-10-09 06:01] LABS: Basophils Absolute Auto 0.1 K/mm3 (0.0-0.1); Basophils Percent Auto 0.7 % (0.2-1.2); Eosinophils Absolute Auto 0.1 K/mm3 (0-0.3); Eosinophils Percent Auto 1.6 % (0-4.4); Hematocrit 27.2 % (42.0-52.0); Hemoglobin 8.8 g/dL (14.0-18.0); Immature Granulocyte Absolute 0.05 K/mm3 (0.00-0.031); Immature Granulocyte Percent A 0.7 % (0-0.5); Lymphocytes Absolute Auto 1.08 K/mm3 (0.9-3.2); Lymphocytes Percent Auto 15.6 % (18.3-44.2); Mean Corpuscular HGB Conc 32.4 g/dl (32-36); Mean Corpuscular Hemoglobin 31.7 pg (26-34); Mean Corpuscular Volume 97.8 fl (80-100); Mean Platelet Volume 10.4 fl (7.4-10.4); Monocytes Absolute Auto 0.7 K/mm3 (0.1-0.6); Monocytes Percent Auto 10.1 % (2.6-8.5); Neutrophils Absolute Auto 4.9 K/mm3 (1.3-6.7); Neutrophils Percent Auto 71.3 % (45.5-73.1); Nucleated Red Blood Cells Perc 0.6 % (0.0-0.2); Platelet Count Result 154 k/mm3 (150-375); Red Blood Count 2.78 M/mm3 (4.6-6.20); Red Cell Distribution Width 14.3 % (11.5-14.5); White Blood Count 6.9 K/mm3 (4.5-10.0)
[2023-10-09 06:25] LABS: Alanine Aminotransferase 54 U/L (6-50); Albumin Level 2.7 g/dL (3.5-5.1); Alkaline Phosphatase 228 U/L (38-126); Anion Gap 3 mmol/L (8-16); Aspartate Amino Transferase 208 U/L (17-59); Bilirubin,Total 5.9 mg/dL (0.2-1.3); Calcium 7.3 mg/dL (8.4-10.2); Carbon Dioxide 32 mmol/L (22-30); Chloride 100 mmol/L (98-107); Estimated CRCL calculation 133 ml/min; Estimated Glomerular Filt Rate > 60; Glucose 98 mg/dL (65-110); Potassium 2.7 mmol/L (3.4-5.0); Sodium 135 mmol/L (137-145)
[2023-10-09] MEDS: POTASSIUM CHLORIDE INJ 40 MEQ in SODIUM CHLORIDE 0.9% IV 500 ML 130 MEQ IVPB (06:59)
[2023-10-09 07:00] LABS: Blood Urea Nitrogen < 2 mg/dL (9-20)
[2023-10-09] MEDS: PANTOPRAZOLE SODIUM IV 40 MG VIAL IV PUSH ×2 (09:29→20:39)
[2023-10-09] MEDS: THIAMINE HCL 200 MG/2 ML VIAL 100 MG IV PUSH (09:30)
[2023-10-09] MEDS: ONDANSETRON INJ 4 MG/2 ML VIAL IV PUSH (12:11)
[2023-10-09] MEDS: SODIUM CHLORIDE 0.9% IV 1,000 ML 75 ML IV CONT (13:36)
--- NOTE | 2023-10-09 16:15 | PM.IMPN ---
Progress Note: A&P Assessment and Plan (1) Alcohol intoxication: Code(s): F10.929 - Alcohol use, unspecified with intoxication, unspecified Status: Acute Assessment and Plan: CIWA triggered Benzodiazepine therapy. 10/07/23: Will add Librium, Haldol 10/08/23: Improved (2) Nausea and vomiting: Code(s): R11.2 - Nausea with vomiting, unspecified Status: Acute Assessment and Plan: due to alcohol; anti-emetics 10/07/23: Improved; IVFs Stable (3) Transaminitis: Code(s): R74.0 - Nonspecific elevation of levels of transaminase and lactic acid dehydrogenase [LDH] Status: Acute (4) Alcoholic gastritis: Code(s): K29.20 - Alcoholic gastritis without bleeding Status: Acute Assessment and Plan: Advance diet as tolerated (5) Vapes nicotine containing substance: Code(s): Z72.0 - Tobacco use Status: Acute Assessment and Plan: cessation counseling, 3 minutes (6) Fatty liver: Code(s): K76.0 - Fatty (change of) liver, not elsewhere classified Status: Acute Assessment and Plan: Cessation counseling,alcohol (7) Diarrhea: Code(s): R19.7 - Diarrhea, unspecified Status: Acute Assessment and Plan: Likely 2/2 withdrawal; Monitor (8) Dark stools: Code(s): R19.5 - Other fecal abnormalities Status: Acute Assessment and Plan: occult blood Time Spent With Patient Time with patient: 25 - 35 minutes Subjective Date/time seen: 10/09/23 16:15 Interval history: Seen and examined; actively withdrawing. Tremulous and somnolent. Not in painful or respiratory distress Review of Systems Review of Systems: All systems reviewed & are unremarkable except as noted in HPI and below Constitutional: Constitutional: Reports fatigue Eyes: Eyes: Reports as per HPI ENT: Reports system reviewed and no additional complaints, except as documented Cardiovascular: Cardiovascular: Reports no additional cardiovascular complaints Respiratory: Respiratory: Reports no additional respiratory complaints Gastrointestinal: Gastrointestinal: Reports no additional gastrointestinal complaints, Reports nausea and Reports vomiting Genitourinary: Genitourinary: Reports no additional male genitourinary complaints Musculoskeletal: Musculoskeletal: Reports no additional musculoskeletal complaints Integumentary/Breasts: Skin/Breast: Reports system reviewed and no additional complaints, except as docu Neurologic: Reports system reviewed and no additional complaints, except as documented Psychiatric: Psychiatric: Reports no additional psychiatric complaints Endocrine: Endocrine: Reports fatigue Exam Const: General: no acute distress HENMT: Ears: TM's normal bilaterally Eyes: General: appearance normal, both eyes and all related structures Pupils: Equal, round and reactive pupils present Neck: Neck: supple Resp: Effort & Inspection: normal respiratory effort Cardio: Rate: regular rate : General: Yes bladder normal to palpation Skin: General skin exam: normal color Neuro: General: gait normal Cranial nerves: Yes Equal, round and reactive pupils present Motor exam (neuro): 5/5 motor strength present throughout Psych: Mental Status: mental status grossly normal Objective Data Vital Signs Vital Signs: Vital Signs - 24 hr 10/08/23 18:00 10/08/23 20:00 10/08/23 20:00 Temperature 98.7 F Pulse Rate 118 H 107 H 107 H Pulse Rate [Bilateral Pedal (Dorsalis Pedis) Palpation] Respiratory Rate 23 H Blood Pressure 97/68 L Pulse Oximetry 98 Oxygen Delivery 10/08/23 22:00 10/08/23 23:50 10/08/23 23:54 Temperature 98.3 F Pulse Rate 108 H 108 H Pulse Rate [Bilateral Pedal (Dorsalis Pedis) Palpation] 100 Respiratory Rate 23 H Blood Pressure 118/78 Pulse Oximetry 100 Oxygen Delivery 10/09/23 00:00 10/09/23 00:00 10/09/23 02:00 Temperature Pulse Rate 106
--- NOTE | 2023-10-09 20:15 | PC.NURSE ---
On 10/09/23, the student, SN Umu, provided care and completed [facility] documentation on this patient.? I have reviewed the student's documentation and?agree?with the findings.
[2023-10-10] VITALS (15 sets, daily range): BP systolic 107–123; BP diastolic 58–85; PULSE 96–120; RESP 14–32; TEMP 36.3–37.7; O2SAT 92–100
[2023-10-10] MEDS: SODIUM CHLORIDE 0.9% IV 1,000 ML 75 ML IV CONT (04:19)
[2023-10-10] MEDS: chlordiazePOXIDE (*CRX) 25 MG CAPSULE PO ×3 (05:03→21:18)
[2023-10-10 05:16] LABS: Basophils Absolute Auto 0.1 K/mm3 (0.0-0.1); Basophils Percent Auto 0.7 % (0.2-1.2); Eosinophils Absolute Auto 0.1 K/mm3 (0-0.3); Eosinophils Percent Auto 1.2 % (0-4.4); Hematocrit 26.1 % (42.0-52.0); Hemoglobin 8.2 g/dL (14.0-18.0); Immature Granulocyte Absolute 0.07 K/mm3 (0.00-0.031); Immature Granulocyte Percent A 0.9 % (0-0.5); Lymphocytes Percent Auto 14.3 % (18.3-44.2); Mean Corpuscular HGB Conc 31.4 g/dl (32-36); Mean Corpuscular Hemoglobin 31.5 pg (26-34); Mean Corpuscular Volume 100.4 fl (80-100); Mean Platelet Volume 10.2 fl (7.4-10.4); Monocytes Absolute Auto 1.1 K/mm3 (0.1-0.6); Monocytes Percent Auto 13.9 % (2.6-8.5); Neutrophils Absolute Auto 5.3 K/mm3 (1.3-6.7); Nucleated Red Blood Cells Perc 0.3 % (0.0-0.2); Platelet Count Result 200 k/mm3 (150-375); Red Cell Distribution Width 15.3 % (11.5-14.5); White Blood Count 7.7 K/mm3 (4.5-10.0)
[2023-10-10 05:31] LABS: Alanine Aminotransferase 49 U/L (6-50); Albumin Level 2.7 g/dL (3.5-5.1); Alkaline Phosphatase 221 U/L (38-126); Anion Gap 6 mmol/L (8-16); Aspartate Amino Transferase 208 U/L (17-59); Bilirubin,Total 5.7 mg/dL (0.2-1.3); Calcium 7.6 mg/dL (8.4-10.2); Carbon Dioxide 27 mmol/L (22-30); Chloride 102 mmol/L (98-107); Estimated CRCL calculation 133 ml/min; Estimated Glomerular Filt Rate > 60; Glucose 116 mg/dL (65-110); Potassium 2.9 mmol/L (3.4-5.0); Sodium 135 mmol/L (137-145)
[2023-10-10 05:45] LABS: Blood Urea Nitrogen < 2 mg/dL (9-20)
[2023-10-10] MEDS: POTASSIUM CHLORIDE INJ 40 MEQ in SODIUM CHLORIDE 0.9% IV 500 ML 130 MEQ IVPB (06:00)
[2023-10-10] MEDS: THIAMINE HCL 200 MG/2 ML VIAL 100 MG IV PUSH (09:15)
[2023-10-10] MEDS: PANTOPRAZOLE SODIUM IV 40 MG VIAL IV PUSH ×2 (09:15→20:19)
--- NOTE | 2023-10-10 12:27 | PM.IMPN ---
Progress Note: A&P Assessment and Plan (1) Alcohol intoxication: Code(s): F10.929 - Alcohol use, unspecified with intoxication, unspecified Status: Acute Assessment and Plan: CIWA triggered Benzodiazepine therapy. 10/07/23: Will add Librium, Haldol 10/08/23: Improved (2) Nausea and vomiting: Code(s): R11.2 - Nausea with vomiting, unspecified Status: Acute Assessment and Plan: due to alcohol; anti-emetics 10/07/23: Improved; IVFs Stable (3) Transaminitis: Code(s): R74.0 - Nonspecific elevation of levels of transaminase and lactic acid dehydrogenase [LDH] Status: Acute (4) Alcoholic gastritis: Code(s): K29.20 - Alcoholic gastritis without bleeding Status: Acute Assessment and Plan: Advance diet as tolerated (5) Vapes nicotine containing substance: Code(s): Z72.0 - Tobacco use Status: Acute Assessment and Plan: cessation counseling, 3 minutes (6) Fatty liver: Code(s): K76.0 - Fatty (change of) liver, not elsewhere classified Status: Acute Assessment and Plan: Cessation counseling,alcohol (7) Diarrhea: Code(s): R19.7 - Diarrhea, unspecified Status: Acute Assessment and Plan: Likely 2/2 withdrawal; Monitor 10/10/23: Improved (8) Dark stools: Code(s): R19.5 - Other fecal abnormalities Status: Acute Assessment and Plan: occult blood Plan Acute and Principal conditions 1. Alcohol dependence with withdrawal 2. Physical deconditioning 3. Tachycardia; Hypotension 4. GERD 5. Elevated liver enzymes; Fatty liver CIWA triggered benzodiazepine therapy Falls and safety precautions Protonix 10/10/23: BNP, Troponin, LA, ECG; probably ECHO. if normal will add a rate controlling Rx Chronic and stable conditions 1. Macrocytic anemia. likely 2/2 alcoholism 2. Hypertension. 3. Nicotine dependence. cessation counseling, 3 minutes Miscellaneous care Code status. Full Nutrition. Regular diet Disposition. Likely home with [facility] Time Spent With Patient Time with patient: 25 - 35 minutes Subjective Date/time seen: 10/10/23 12:27 Interval history: Seen and examined; actively withdrawing. Tired looking with fine tremors. Not in painful or respiratory distress Review of Systems Review of Systems: All systems reviewed & are unremarkable except as noted in HPI and below Constitutional: Constitutional: Reports fatigue Eyes: Eyes: Reports as per HPI ENT: Reports system reviewed and no additional complaints, except as documented Cardiovascular: Cardiovascular: Reports no additional cardiovascular complaints Respiratory: Respiratory: Reports no additional respiratory complaints Gastrointestinal: Gastrointestinal: Reports no additional gastrointestinal complaints, Reports nausea and Reports vomiting Genitourinary: Genitourinary: Reports no additional male genitourinary complaints Musculoskeletal: Musculoskeletal: Reports no additional musculoskeletal complaints Integumentary/Breasts: Skin/Breast: Reports system reviewed and no additional complaints, except as docu Neurologic: Reports system reviewed and no additional complaints, except as documented Psychiatric: Psychiatric: Reports no additional psychiatric complaints Endocrine: Endocrine: Reports fatigue Exam Const: General: no acute distress HENMT: Ears: TM's normal bilaterally Eyes: General: appearance normal, both eyes and all related structures Pupils: Equal, round and reactive pupils present Neck: Neck: supple Resp: Effort & Inspection: normal respiratory effort Cardio: Rate: regular rate : General: Yes bladder normal to palpation Skin: General skin exam: normal color Neuro: General: gait normal Cranial nerves: Yes Equal, round and reactive pupils present Motor exam (neuro): 5/5 motor strength present throughout Psych: Mental Status: mental status grossly normal Objective Data Vi
--- NOTE | 2023-10-10 12:37 | ECG_ITS ---
Measurements Intervals [place] Rate: 117 P: 16 VT: 159 QRS: 21 QRSD: 76 T: 4 QT: 313 QTc: 438 Interpretive Statements SINUS TACHYCARDIA NONSPECIFIC T-WAVE ABNORMALITY ABNORMAL ECG COMPARED TO ECG 10/06/2023 01:24:38 NO SIGNIFICANT CHANGES Electronically Signed On 10-11-2023 8:35:16 RELIEF DRILLER by Ellis Morin M.D.
[2023-10-10] MEDS: THERAPEUTIC MULTIVITAMINS/MINERALS TAB (*BKC) 1 TABLET PO (12:56)
[2023-10-10] MEDS: THIAMINE HCL 100 MG TABLET PO (12:56)
[2023-10-10] MEDS: FOLIC ACID 1 MG TABLET PO (12:56)
[2023-10-10 12:57] LABS: NT Pro B Type Natriuretic Pept 235 pg/mL (19.9-100)
[2023-10-10 13:39] LABS: Lactic Acid Reflex 4.1 mmol/L (0.7-2.0)
[2023-10-10 13:43] LABS: Troponin I < 0.012 ng/mL (0.000-0.034)
--- NOTE | 2023-10-10 13:45 | PC.NURSE ---
This patient, Angel Lopez, was transferred to [ ] on 10/10/23 at 1345. Personal belongings sent with patient. Report given to [ ]. Appropriate documentation sent with patient.
--- NOTE | 2023-10-10 13:45 | PC.NURSE ---
This patient, Angel Lopez, was transferred to [facility] on 10/10/23 at 1310. Personal belongings sent with patient. Report given to Phuong THOMPSON. Appropriate documentation sent with patient.
[2023-10-10] MEDS: SODIUM CHLORIDE 0.9% IV 1,000 ML 999 ML IV CONT (14:43)
[2023-10-10] MEDS: METOPROLOL SUCCINATE EXT REL 25 MG TABCR PO (14:46)
[2023-10-10 15:27] LABS: INR 1.1; Prothrombin Time 14.5 Seconds (11.1-14.7)
--- NOTE | 2023-10-10 15:45 | PCPTNOTE ---
attempted PT eval, per RN, pt is currently getting bolus, has elevated labs anbd HR, hold therapy for today
[2023-10-10] MEDS: SODIUM BICARBONATE 8.4% 150 MEQ in WATER, STERILE FOR INJECTION 950 ML 50 MEQ IV CONT (16:10)
[2023-10-10 16:16] LABS: Reflex Lactic Acid Yes or No Add Lactic
[2023-10-10 16:24] LABS: Procalcitonin 0.5 ng/mL
[2023-10-10 17:01] LABS: Lactic Acid 3.1 mmol/L (0.7-2.0); Lipase 896 U/L (23-300)
[2023-10-10 17:02] LABS: Ammonia 28 umol/L (9-30)
[2023-10-10 17:26] LABS: Phosphorus < 1.0 mg/dL (2.5-4.5)
[2023-10-10] MEDS: LACTATED RINGERS 1,000 ML 999 ML IV CONT (20:19)
[2023-10-10 22:39] LABS: Lactic Acid Reflex 4.1 mmol/L (0.7-2.0)
[2023-10-11] VITALS (10 sets, daily range): BP systolic 102–118; BP diastolic 67–74; PULSE 54–110; RESP 14–18; TEMP 36.3–36.7; O2SAT 95–100
[2023-10-11 05:41] LABS: Mean Corpuscular HGB Conc 32.1 g/dl (32-36); Mean Corpuscular Volume 99.6 fl (80-100); Mean Platelet Volume 10.1 fl (7.4-10.4); Platelet Count Result 296 k/mm3 (150-375); Red Blood Count 2.81 M/mm3 (4.6-6.20); Red Cell Distribution Width 16.5 % (11.5-14.5); White Blood Count 8.7 K/mm3 (4.5-10.0)
[2023-10-11] MEDS: chlordiazePOXIDE (*CRX) 25 MG CAPSULE PO ×3 (05:48→21:05)
[2023-10-11 05:52] LABS: Alanine Aminotransferase 53 U/L (6-50); Alkaline Phosphatase 264 U/L (38-126); Anion Gap 6 mmol/L (8-16); Aspartate Amino Transferase 232 U/L (17-59); Bilirubin,Total 6.5 mg/dL (0.2-1.3); Blood Urea Nitrogen 3 mg/dL (9-20); Carbon Dioxide 27 mmol/L (22-30); Chloride 103 mmol/L (98-107); Estimated CRCL calculation 113 ml/min; Estimated Glomerular Filt Rate > 60; Glucose 101 mg/dL (65-110); Potassium 3.2 mmol/L (3.4-5.0); Sodium 136 mmol/L (137-145)
[2023-10-11 06:25] LABS: Band Neutrophils Percent 1 % (0-6); Basophils Absolute Manual 0.17 K/mm3 (0.0-0.1); Basophils Percent Manual 2 % (0-1); Eosinophils Absolute Manual 0.08 K/mm3 (0.02-0.5); Eosinophils Percent Manual 1 % (0-4); Hypochromasia 2+ (NORMAL); Monocytes Absolute Manual 1.21 K/mm3 (0.1-0.90); Monocytes Percent Manual 14 % (3-9); Neutrophils Absolute Manual 5.91 K/mm3 (1.3-6.7); Neutrophils Percent Manual 67 % (46-73); Nucleated Red Blood Cells 1 %; Platelet Estimate Adequate (Adequate); Schistocytes None Seen (NORMAL); Total Cells Counted 100
[2023-10-11 06:26] LABS: Polychromasia 1+ (NORMAL); Stomatocytes 2+ (NORMAL)
--- NOTE | 2023-10-11 07:26 | WPDGICN ---
Assessment and Plan Assessment and plan (1) Alcohol intoxication: Code(s): F10.929 - Alcohol use, unspecified with intoxication, unspecified Status: Acute Assessment and Plan: He is alert awake and calm. He seems to have gotten through the worst of the withdrawal phase. (2) Alcohol abuse: Code(s): F10.10 - Alcohol abuse, uncomplicated Status: Acute Assessment and Plan: He denied discussed his need to stop drinking alcohol. I talked to him about support. He really does not have lot of support terms of family members but is definitely going to seek treatment he states. He has 1st going to do it on his own through absence of (3) Elevated liver function tests: Code(s): R94.5 - Abnormal results of liver function studies Status: Acute Assessment and Plan: bilirubin is 6.5 and has remained around that level since admission. AST 232 of colon phosphatase 264 but ALT is only 53. Albumin has been around 2.7. (4) Fatty liver: Code(s): K76.0 - Fatty (change of) liver, not elsewhere classified Status: Acute Assessment and Plan: he has no prior history of liver disease jaundice or hepatitis he and I had a discussion regarding fatty liver and alcohol as both causes of cirrhosis. (5) Pancreatitis: Code(s): K85.90 - Acute pancreatitis without necrosis or infection, unspecified Status: Acute Assessment and Plan: Lipase is elevated. CT scan revealed: Diffuse fatty infiltration of liver. Markedly distended gallbladder with gallbladder sludge, but no other secondary signs for acute cholecystitis. (6) Hypophosphatemia: Code(s): E83.39 - Other disorders of phosphorus metabolism Status: Acute Assessment and Plan: I ordered serum phosphorus level and is low at less than 1. This will need to be replenished. (7) Macrocytic anemia: Code(s): D53.9 - Nutritional anemia, unspecified Status: Acute Assessment and Plan: typical of chronic alcohol use. Plan I agree with his present management. Aside from the need to replete potassium, I have nothing else to recommend at this time. From my perspective he can be discharged and follow up in the office for follow-up of his liver function. GI Consult Note Consult date/time: 10/11/23 07:26 HPI: Angel Lopez is a 53 year old male who was admitted 5 days ago when he presented to the emergency room with not feeling well . He had been complaining of abdominal discomfort and fatigue. He admitted that he had been drinking alcohol heavily. He drinks at least 1/5 of hard liquor per day as well as beer. He has been on the CIWA protocol. He states today that he feels good. He has been tolerating a regular diet he has never hospital before for alcohol withdrawal syndrome. He acknowledges that he has a problem with alcohol he wants to stop. Review of Systems Review of Systems: All systems reviewed & are unremarkable except as noted in HPI and below PMFSH Past Medical History Medical History Alcohol abuse Healthy adult male Obesity LARISSA (obstructive sleep apnea) Surgical History Surgical History No history of previous surgery Previous back surgery Family History Family History Mother Diabetes mellitus Mother Diabetes mellitus Father Hypertension Sibling Stomach cancer Social History Social History Social History: Reyna name is Maki. 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
[2023-10-11 09:01] LABS: Lactic Acid Reflex 2.9 mmol/L (0.7-2.0)
[2023-10-11] MEDS: PANTOPRAZOLE SODIUM IV 40 MG VIAL IV PUSH ×2 (09:26→21:05)
[2023-10-11] MEDS: POTASSIUM PHOS,M-BASIC-D-BASIC 40 MMOL in SODIUM CHLORIDE 0.9% IV 250 ML 43.89 MMOL IVPB (09:29)
[2023-10-11] MEDS: METOPROLOL SUCCINATE EXT REL 25 MG TABCR PO (09:31)
[2023-10-11] MEDS: THIAMINE HCL 100 MG TABLET PO (09:31)
[2023-10-11] MEDS: FOLIC ACID 1 MG TABLET PO (09:31)
[2023-10-11] MEDS: THERAPEUTIC MULTIVITAMINS/MINERALS TAB (*BKC) 1 TABLET PO (09:31)
[2023-10-11] MEDS: POTASSIUM CHLORIDE 20 MEQ PACKET (FOR LIQUID) 40 MEQ PO ×2 (09:32→21:05)
[2023-10-11 11:47] LABS: Reflex Lactic Acid Yes or No Add Lactic
[2023-10-11 12:28] LABS: Lactic Acid 3.2 mmol/L (0.7-2.0)
--- NOTE | 2023-10-11 12:36 | PM.IMPN ---
Progress Note: A&P Assessment and Plan (1) Alcohol intoxication: Code(s): F10.929 - Alcohol use, unspecified with intoxication, unspecified Status: Acute Assessment and Plan: CIWA triggered Benzodiazepine therapy. 10/07/23: Will add Librium, Haldol 10/08/23: Improved (2) Nausea and vomiting: Code(s): R11.2 - Nausea with vomiting, unspecified Status: Acute Assessment and Plan: due to alcohol; anti-emetics 10/07/23: Improved; IVFs Stable (3) Transaminitis: Code(s): R74.0 - Nonspecific elevation of levels of transaminase and lactic acid dehydrogenase [LDH] Status: Acute Assessment and Plan: Likely 2/2 alcohol dependence (4) Alcoholic gastritis: Code(s): K29.20 - Alcoholic gastritis without bleeding Status: Acute Assessment and Plan: Advance diet as tolerated (5) Vapes nicotine containing substance: Code(s): Z72.0 - Tobacco use Status: Acute Assessment and Plan: cessation counseling, 3 minutes (6) Fatty liver: Code(s): K76.0 - Fatty (change of) liver, not elsewhere classified Status: Acute Assessment and Plan: Cessation counseling,alcohol (7) Diarrhea: Code(s): R19.7 - Diarrhea, unspecified Status: Acute Assessment and Plan: Likely 2/2 withdrawal; Monitor 10/10/23: Improved (8) Dark stools: Code(s): R19.5 - Other fecal abnormalities Status: Acute Assessment and Plan: Monitor Hb (9) Hypophosphatemia: Code(s): E83.39 - Other disorders of phosphorus metabolism Status: Acute Assessment and Plan: Will replete and m (10) Hypokalemia: Code(s): E87.6 - Hypokalemia Status: Acute Assessment and Plan: Will replete and monitor (11) Elevated lipase: Code(s): R74.8 - Abnormal levels of other serum enzymes Status: Acute Assessment and Plan: Likely 2/2 alcohol; no pain Plan Acute and Principal conditions 1. Alcohol dependence with withdrawal 2. Physical deconditioning 3. Tachycardia; Hypotension 4. GERD 5. Elevated liver enzymes; Fatty liver CIWA triggered benzodiazepine therapy Falls and safety precautions Protonix 10/10/23: BNP, Troponin, LA, ECG; probably ECHO. if normal will add a rate controlling Rx Chronic and stable conditions 1. Macrocytic anemia. likely 2/2 alcoholism 2. Hypertension. 3. Nicotine dependence. cessation counseling, 3 minutes Miscellaneous care Code status. Full Nutrition. Regular diet Disposition. Likely home with [facility]; Will DC tomorrow Time Spent With Patient Time with patient: 25 - 35 minutes Subjective Date/time seen: 10/11/23 12:37 Interval history: Seen and examined; actively withdrawing. Tired looking with fine tremors. Not in painful or respiratory distress 10/11/23: Eager to be discharged; will replete K and Phos; GI cleared him for discharge Review of Systems Review of Systems: All systems reviewed & are unremarkable except as noted in HPI and below Constitutional: Constitutional: Reports fatigue Eyes: Eyes: Reports as per HPI ENT: Reports system reviewed and no additional complaints, except as documented Cardiovascular: Cardiovascular: Reports no additional cardiovascular complaints Respiratory: Respiratory: Reports no additional respiratory complaints Gastrointestinal: Gastrointestinal: Reports no additional gastrointestinal complaints, Reports nausea and Reports vomiting Genitourinary: Genitourinary: Reports no additional male genitourinary complaints Musculoskeletal: Musculoskeletal: Reports no additional musculoskeletal complaints Integumentary/Breasts: Skin/Breast: Reports system reviewed and no additional complaints, except as docu Neurologic: Reports system reviewed and no additional complaints, except as documented Psychiatric: Psychiatric: Reports no additional psychiatric complaints Endocrine: Endocrine: Reports fatigue Exam
[2023-10-11 18:49] LABS: IFOB Positive Control Positive; Immunochemical Fecal Occult Bl Negative (N)
[2023-10-11] MEDS: SODIUM BICARBONATE 8.4% 150 MEQ in WATER, STERILE FOR INJECTION 950 ML 50 MEQ IV CONT (21:13)
[2023-10-12] VITALS: PULSE 93
[2023-10-12 04:00] VITALS: PULSE 107
[2023-10-12 04:29] VITALS: BP 98/60; PULSE 84; RESP 20; TEMP 36.2; O2SAT 95
[2023-10-12] MEDS: chlordiazePOXIDE (*CRX) 25 MG CAPSULE PO (05:10)
[2023-10-12 06:21] LABS: Basophils Absolute Auto 0.1 K/mm3 (0.0-0.1); Basophils Percent Auto 0.5 % (0.2-1.2); Eosinophils Absolute Auto 0.1 K/mm3 (0-0.3); Eosinophils Percent Auto 1.1 % (0-4.4); Hematocrit 26.7 % (42.0-52.0); Hemoglobin 8.3 g/dL (14.0-18.0); Immature Granulocyte Absolute 0.47 K/mm3 (0.00-0.031); Lymphocytes Absolute Auto 1.04 K/mm3 (0.9-3.2); Lymphocytes Percent Auto 11.1 % (18.3-44.2); Mean Corpuscular HGB Conc 31.1 g/dl (32-36); Mean Corpuscular Hemoglobin 31.8 pg (26-34); Mean Corpuscular Volume 102.3 fl (80-100); Monocytes Absolute Auto 2.2 K/mm3 (0.1-0.6); Monocytes Percent Auto 23.8 % (2.6-8.5); Neutrophils Absolute Auto 5.5 K/mm3 (1.3-6.7); Neutrophils Percent Auto 58.5 % (45.5-73.1); Nucleated Red Blood Cells Perc 0.4 % (0.0-0.2); Platelet Count Result 392 k/mm3 (150-375); Red Blood Count 2.61 M/mm3 (4.6-6.20); Red Cell Distribution Width 17.8 % (11.5-14.5); White Blood Count 9.4 K/mm3 (4.5-10.0)
[2023-10-12 06:39] LABS: Alanine Aminotransferase 47 U/L (6-50); Albumin Level 2.6 g/dL (3.5-5.1); Alkaline Phosphatase 262 U/L (38-126); Anion Gap 7 mmol/L (8-16); Aspartate Amino Transferase 212 U/L (17-59); Blood Urea Nitrogen 3 mg/dL (9-20); Calcium 7.4 mg/dL (8.4-10.2); Carbon Dioxide 26 mmol/L (22-30); Chloride 103 mmol/L (98-107); Estimated CRCL calculation 113 ml/min; Estimated Glomerular Filt Rate > 60; Glucose 120 mg/dL (65-110); Potassium 3.4 mmol/L (3.4-5.0); Sodium 136 mmol/L (137-145)
[2023-10-12 07:29] LABS: Anisocytosis 1+ (NORMAL); Hypochromasia 1+ (NORMAL); Schistocytes None Seen (NORMAL); Target Cells 2+ (NORMAL)
[2023-10-12 08:00] VITALS: BP 100/63; PULSE 105; RESP 16; TEMP 37.5; O2SAT 100
[2023-10-12] MEDS: FOLIC ACID 1 MG TABLET PO (09:20)
[2023-10-12] MEDS: THERAPEUTIC MULTIVITAMINS/MINERALS TAB (*BKC) 1 TABLET PO (09:21)
[2023-10-12] MEDS: THIAMINE HCL 100 MG TABLET PO (09:21)
[2023-10-12 09:22] VITALS: PULSE 105
[2023-10-12] MEDS: METOPROLOL SUCCINATE EXT REL 25 MG TABCR PO (09:22)
[2023-10-12] MEDS: PANTOPRAZOLE SODIUM IV 40 MG VIAL IV PUSH (09:28)
[2023-10-12 09:43] LABS: Phosphorus 1.8 mg/dL (2.5-4.5)
--- NOTE | 2023-10-13 18:39 | PM.DS ---
DS: Admitting Diagnosis Discharge Date 10/12/23 Admitting Diagnosis cute and Principal conditions 1. Alcohol dependence with withdrawal 2. Physical deconditioning 3. Tachycardia; Hypotension 4. GERD 5. Elevated liver enzymes; Fatty liver CIWA triggered benzodiazepine therapy Falls and safety precautions Protonix 10/10/23: BNP, Troponin, LA, ECG; probably ECHO. if normal will add a rate controlling Rx DS: Discharge Diagnosis Discharge Diagnosis (1) Alcohol intoxication: Code(s): F10.929 - Alcohol use, unspecified with intoxication, unspecified Status: Acute Assessment and Plan: CIWA triggered Benzodiazepine therapy. 10/07/23: Will add Librium, Haldol 10/08/23: Improved (2) Nausea and vomiting: Code(s): R11.2 - Nausea with vomiting, unspecified Status: Acute Assessment and Plan: due to alcohol; anti-emetics 10/07/23: Improved; IVFs Stable (3) Transaminitis: Code(s): R74.0 - Nonspecific elevation of levels of transaminase and lactic acid dehydrogenase [LDH] Status: Acute Assessment and Plan: Likely 2/2 alcohol dependence (4) Alcoholic gastritis: Code(s): K29.20 - Alcoholic gastritis without bleeding Status: Acute Assessment and Plan: Advance diet as tolerated (5) Vapes nicotine containing substance: Code(s): Z72.0 - Tobacco use Status: Acute Assessment and Plan: cessation counseling, 3 minutes (6) Fatty liver: Code(s): K76.0 - Fatty (change of) liver, not elsewhere classified Status: Acute Assessment and Plan: Cessation counseling,alcohol (7) Diarrhea: Code(s): R19.7 - Diarrhea, unspecified Status: Acute Assessment and Plan: Likely 2/2 withdrawal; Monitor 10/10/23: Improved (8) Dark stools: Code(s): R19.5 - Other fecal abnormalities Status: Acute Assessment and Plan: Monitor Hb (9) Hypophosphatemia: Code(s): E83.39 - Other disorders of phosphorus metabolism Status: Acute Assessment and Plan: Will replete and m (10) Hypokalemia: Code(s): E87.6 - Hypokalemia Status: Acute Assessment and Plan: Will replete and monitor (11) Elevated lipase: Code(s): R74.8 - Abnormal levels of other serum enzymes Status: Acute Assessment and Plan: Likely 2/2 alcohol; no pain Plan Acute and Principal conditions 1. Alcohol dependence with withdrawal 2. Physical deconditioning 3. Tachycardia; Hypotension 4. GERD 5. Elevated liver enzymes; Fatty liver CIWA triggered benzodiazepine therapy Falls and safety precautions Protonix 10/10/23: BNP, Troponin, LA, ECG; probably ECHO. if normal will add a rate controlling Rx Chronic and stable conditions 1. Macrocytic anemia. likely 2/2 alcoholism 2. Hypertension. 3. Nicotine dependence. cessation counseling, 3 minutes Miscellaneous care Code status. Full Nutrition. Regular diet Disposition. Likely home with [facility]; Will DC tomorrow DS: Summary Hospital Course Hospital Course: Chief Complaint: 1. Alcohol intoxication 2. Nausea and? vomiting Narrative: Angel Lopez is a 53-year-old gentleman who presents emergency department with chief complaint of not feeling well.? The patient reports that he has history of alcohol abuse and reports that he drinks about a 5th and a few beers a day the patient states that he had an episode of passing out in the kitchen yesterday and struck his head patient also reports he has been vomiting and has had episodes with blood in his vomitus.? The patient reports that he has had abdominal discomfort with this as well and has not been feeling well. He vapes nicotine, drinks beers and vodka daily, denies illicit drug use; Significant findings: CTAP:?Diffuse fatty infiltration of liver. Markedly distended gallbladder with gallbladder sludge, but no other secondary signs for acute cholecystitis. CT head:?Unremarkable CXR: Unremar
== END 2023-10-12 12:40 | disposition home or self-care (01) | DRG 241 ==
LOC: ANHED 10-06 04:43 → ANHIMU 10-06 04:55 → ANHICU 10-06 09:26 → ANHIMU 10-08 22:15 → ANH2MED 10-10 13:05
PROVIDERS: Internal Medicine; Internal Medicine Gastroenterology; Admitting Provider Internal Medicine; Emergency Provider Emergency Medicine; PCP Internal Medicine; Visit Provider Internal Medicine
DX: K29.20 Alcoholic gastritis without bleeding (principal); Y90.8 Blood alcohol level of 240 mg/100 ml or more; F10.239 Alcohol dependence with withdrawal, unspecified; F10.229 Alcohol dependence with intoxication, unspecified; K76.0 Fatty (change of) liver, not elsewhere classified; K82.8 Other specified diseases of gallbladder; K21.9 Gastro-esophageal reflux disease without esophagitis; G47.33 Obstructive sleep apnea (adult) (pediatric); E87.29 Other acidosis; F17.210 Nicotine dependence, cigarettes, uncomplicated; R00.0 Tachycardia, unspecified; I95.9 Hypotension, unspecified; D53.9 Nutritional anemia, unspecified; I10 Essential (primary) hypertension; R74.01 Elevation of levels of liver transaminase levels; R19.5 Other fecal abnormalities; E87.6 Hypokalemia; E83.39 Other disorders of phosphorus metabolism
CPT/HCPCS: 36415; 70450; 71045; 74177; 76705; 80053; 80307; 81001; 82010; 82140; 82274; 82948; 83605; 83690; 83735; 83880; 84100; 84145; 84484; 85014; 85018; 85025; 85055; 85610; 85730; 86850; 86900; 86901; 93005; 96361; 96365; 96366; 96367; 96372; 96375; 96376; 97162; 97165; 99285; A9270; C9113; G0378; J1650; J2060; J2405; J3411; J3475; J3480; J7030; J7040; J7042; J7050; J7120; Q9967